=== PATIENT | female | born 1970 | race Caucasian/White ===

== ENCOUNTER 2022-02-12 21:43 | Emergency (ER) | payer BC ==
[~2022-02-12] VITALS: Ht 157.5 cm; Wt 70.3 kg
[2022-02-12 22:08] LABS: *BILIRUBIN,URIN NEGATIVE (NEGATIVE); *BLOOD, URINE 2+ (NEGATIVE); *CLARITY,URINE CLOUDY (CLEAR); *COLOR,URINE YELLOW (YELLOW); *KETONES,URINE TRACE (NEGATIVE); *UROBILINOGEN,URINE 0.2 E.U./dl (NORMAL); LEUKOCYTE ESTERASE ,URINE TRACE (NEGATIVE); NITRITE, URINE POSITIVE (NEGATIVE); UGLUCOSE 2+ (NEGATIVE)
[2022-02-12 22:17] LABS: BACTERIA,URINE MANY /HPF (NONE SEEN); RBC,URINE TNTC /HPF (0-3); SQUAMOUS EPITHELIAL CELL,UR FEW /HPF (NONE SEEN); WBC,URINE TNTC /HPF (0-3)
--- NOTE | 2022-02-12 22:30 | NUR ---
After being triaged patient was placed back to waiting to wait for bed opening in the ER.
[2022-02-12] MEDS ORDERED: EMPA10TA PO (22:35)
[2022-02-12] MEDS ORDERED: METF-442 PO (22:35)
--- NOTE | 2022-02-12 23:19 | NUR ---
pt placed in room 2a, Dr. Lazo at bedside for MSE.
[2022-02-12] MEDS ORDERED: OXYCODONE/APAP 5-325 MG TABLET ONE (23:28)
[2022-02-12] MEDS ORDERED: CEFTRIAXONE /D5W 50ML IVPB **ER PYXIS IV ONE (23:28)
[2022-02-12] MEDS ORDERED: CEFTRIAXONE 1 G in IV DEXTROSE 5% 50 ML IV ONE (23:30)
[2022-02-12] MEDS ORDERED: OXYCODONE/APAP 5-325 MG TABLET PO ONE (23:30)
[2022-02-12] MEDS ORDERED: IV NORMAL SALINE 1000 ML BAG IV ONE (23:30)
--- NOTE | 2022-02-13 00:15 | NUR ---
pt at this time does not want iv antibiotics states wants to wait for blood results.
--- NOTE | 2022-02-13 00:17 | NUR ---
call placed to radiology for cat scan.
[2022-02-13 00:18] LABS: HEMATOCRIT 38.3 % (31.2-41.9); MEAN CORPUSCULAR HEMOGLOBIN 28.6 uug (24.7-32.8); MEAN CORPUSCULAR VOLUME 83.2 fL (75.5-95.3); PLATELET COUNT (AUTO) 153 K/uL (179-408)
[2022-02-13 00:31] LABS: ALANINE AMINOTRANSFERASE 37 U/L (14-59); ALKALINE PHOSPHATASE 75 U/L (50-136); ASPARTATE AMINOTRANSFERASE 6 U/L (15-37); BILIRUBIN,DIRECT 0.1 mg/dL (0.0-0.2); BILIRUBIN,TOTAL 0.2 mg/dL (0.2-1.0); CARBON DIOXIDE 26 mmol/L (21-32); CHLORIDE 104 mmol/L (98-107); CREATININE 0.5 mg/dL (0.6-1.3); GLUCOSE 235 mg/dL (74-106); POTASSIUM 3.5 mmol/L (3.5-5.1); TOTAL PROTEIN, SERUM 7.5 g/dL (6.4-8.2); UREA NITROGEN, BLOOD 10 mg/dL (7-18)
--- NOTE | 2022-02-13 00:32 | NUR ---
Dr. Foster was in the room spoke with the pt as she initially refused Rocephin abx iv. I went in room she initially refused, and after a few minutes she agreed for this medicine.
--- NOTE | 2022-02-13 00:48 | NUR ---
pt taken to cat scan.
--- NOTE | 2022-02-13 00:58 | NUR ---
pt returned from cat scan.
[2022-02-13] MEDS ORDERED: PROC-11 PO (02:31)
[2022-02-13] MEDS ORDERED: SULF1TAB48 PO (02:31)
[2022-02-13] MEDS ORDERED: OXYC-128 PO (02:31)
[2022-02-13 02:52] VITALS: BP 135/84
--- NOTE | 2022-02-13 02:52 | NUR ---
Patient discharged to home in stable condition. Written and verbal after care instructions given. Patient verbalizes understanding of instructions. Stressed follow up or return to ER for worsening s/s.
== END 2022-02-13 02:53 | disposition home or self-care (01) ==
LOC: ER 21:52
DX: N39.0 Urinary tract infection, site not specified (principal); N20.0 Calculus of kidney; K76.0 Fatty (change of) liver, not elsewhere classified; E11.8 Type 2 diabetes mellitus with unspecified complications; Z79.84 Long term (current) use of oral hypoglycemic drugs; R03.0 Elevated blood-pressure reading, without diagnosis of hypertension
CPT/HCPCS: 36415; 74176; 80048; 80076; 81001; 85025; 87040; 87086; 96365; 99284; J0696; J7040